=== PATIENT | female | born 1940 | race Caucasian/White ===

== ENCOUNTER → 2017-01-15 | Outpatient (CLI) | payer MEDICARE, BC ==
--- NOTE | ~2017-01-15 | MY10 ---
[facility] A Service [facility] RADIOLOGY TEXT RESULTS PATIENT: CORDELL HUMPHREY LOCATION: [facility] : 44 UNIT #: [id number] AGE: [address]: MARTHA DARLING SEX: F ORDER DR: [id number] [address] [address] [id number] MR#: [id number] Acc #: [id number] NAME: CORDELL HUMPHREY : 1940 SEX: F STUDY DATE/TIME: 01/15/2017 11:45 UNIT: [facility] ROOM: STUDY DESCRIPTION: MY Mammogram Screen Uni Dig Rt Attending Physician: Martha Darling Aprn Referring Physician: Martha Darling Aprn Ordering Physician: Martha Darling Aprn Primary Care Physician: Loree Tavares M.D. MEDICAL IMAGING REPORT This report is preliminary unless electronic signature is present. EXAM Unilateral right digital screening mammogram, 01/15/2017. HISTORY A 76-year-old woman with history of Leslie syndrome, congenital absence of left breast. COMPARISON STUDIES 07/29/2013, 09/03/2014, 11/08/2015. FINDINGS Digital imaging of the right breast was completed utilizing screening protocol with an additional craniocaudal view with the nipple in profile. Breast parenchyma is partially fatty replaced. Subareolar duct prominence is stable. I see no interval occurring mass. There are no suspicious microcalcifications and no architectural deformity. IMPRESSION Negative stable right breast. Congenital absence left breast. Annual screening recommended. BIRADS 1 Patients over the age of 40 are entered into a reminder system with target due date for the next mammogram. A result letter will also be sent to the patient. BIRADS: 1 Negative Dictated by... Luis Avila M.D. [facility] A Service [facility] RADIOLOGY TEXT RESULTS PATIENT: CORDELL HUMPHREY LOCATION: [facility] : 44 UNIT #: [id number] AGE: [address]: MARTHA DARLING SEX: F ORDER DR: THIS IS AN ELECTRONICALLY VERIFIED REPORT Luis Avila M.D. at 01/15/2017 1:00 PM Leonie TD: 01/15/2017 12:33 JOB #: [id number] MEDICAL IMAGING REPORT Page 1 of 1
== END | disposition home or self-care (01) ==
LOC: SMAM 01-01 15:45
DX: Z12.31 Encounter for screening mammogram for malignant neoplasm of breast (principal); Q83.8 Other congenital malformations of breast
CPT/HCPCS: G0202